=== PATIENT | female | born 1990 | race Caucasian/White ===

== ENCOUNTER 2021-02-16 22:20 | Emergency (ER) | payer MEDICAID ==
[~2021-02-16] VITALS: Ht 165.1 cm; Wt 62.0 kg
[2021-02-16 22:54] VITALS: BP 125/76
== END 2021-02-17 00:51 | disposition left against medical advice (07) ==
LOC: ER 22:20
DX: Z53.21 Procedure and treatment not carried out due to patient leaving prior to being seen by health care provider (principal)